=== PATIENT | male | born 1960 | race Caucasian/White ===

== ENCOUNTER 2016-12-20 07:32 | Day surgery (SDC) | payer OTHER ==
--- NOTE | ~2016-12-20 | EGD ---
EGD REPORT [facility] [address] [place] [address] NAME: MICAELA GRAY : 56 STATUS : REG [facility]#: [id number] AGE: 56 ADM/REG DATE : 12/20/16 MR#: [id number] REPORT SERV DATE: 12/20/16 DICTATED BY: DATE: REPORT STATUS : Draft TRANSCRIBED BY: [employer] DATE: 12/20/16 [facility] Patient Name: Micaela Gray Date of : 1960 Attending MD: JOSEY MANDUJANO MD Procedure Date No Time: 12/20/2016 Procedure: Upper GI endoscopy Indications: Abdominal pain in the left upper quadrant, Esophageal reflux symptoms that recur despite appropriate therapy Referring MD: MABEL HOLGUIN Medicines: Monitored Anesthesia Care Complications: No immediate complications. Procedure: Pre-Anesthesia Assessment: - ASA Grade Assessment: III - A patient with severe systemic disease. After obtaining informed consent, the endoscope was passed under direct vision. Throughout the procedure, the patient's blood pressure, pulse, and oxygen saturations were monitored continuously. The GIF H190 [id number] was introduced through the mouth, and advanced to the third part of duodenum. The upper GI endoscopy was accomplished without difficulty. The patient tolerated the procedure well. Findings: A 3 cm hiatus hernia was present. The Z-line was irregular and was found 38 cm from the incisors. A small nodule was noted at 3 o'clock position. Biopsies were taken with a cold forceps for histology. No other significant abnormalities were identified in a careful examination of the esophagus. There is no endoscopic evidence of areas of erosion, ulcerations or varices in the entire esophagus. The entire examined stomach was normal. There is no endoscopic evidence of erythema, mucosal abnormalities, ulceration or varices in the entire examined stomach. The examined duodenum was normal. Biopsies were taken with a cold forceps for histology. There is no endoscopic evidence of mucosal abnormalities or ulceration in the entire examined duodenum. The cardia and gastric fundus were otherwise normal on retroflexion. Impression: - Hiatus hernia. - Z-line irregular, 38 cm from the incisors. Biopsied. - Normal stomach. EGD REPORT [address] [address] NAME: MICAELA GRAY : [birth year] STATUS : REG [facility] [place] PAT#: [id number] AGE: 56 ADM/REG DATE : 12/20/16 MR#: [id number] REPORT SERV DATE: 12/20/16 DICTATED BY: DATE: REPORT STATUS : Draft TRANSCRIBED BY: [employer] DATE: 12/20/16 - Normal examined duodenum. Biopsied. Recommendation: - Patient has a contact number available for emergencies. The signs and symptoms of potential delayed complications were discussed with the patient. Return to normal activities tomorrow. Written discharge instructions were provided to the patient. - Return to previous diet. - Discharge patient to home. - Continue present medications. - Await pathology results. Procedure Code(s): --- Professional --- 25706, Esophagogastroduodenoscopy, flexible, transoral; with biopsy, single or multiple Diagnosis Code(s): --- Professional --- K44.9, Diaphragmatic hernia without obstruction or gangrene K22.8, Other specified diseases of esophagus R10.12, Left upper quadrant pain K21.9, Gastro-esophageal reflux disease without esophagitis CPT copyright 2013 [employer]. All rights reserved. The codes documented in this report are preliminary and upon clinical coder review may be revised to meet current compliance requirements. JOSEY MANDUJANO MD 12/20/2016 9:10 AM This report has been signed electronically. Number of Addenda: 0 Note Initiated On: 12/20/2016 8:57 AM Scope Withdrawal Time 0 hours 0 minutes 0 seconds [id number] [place] [id number]
--- NOTE | ~2016-12-20 | EGD ---
EGD REPORT [facility] [address] [address] NAME: MICAELA GRAY : [birth year] STATUS : REG [facility]#: [id number] AGE: 56 ADM/REG DATE : 12/20/16 MR#: [id number] REPORT SERV DATE: 12/20/16 DICTATED BY: DATE: REPORT STATUS : Draft TRANSCRIBED BY: [employer] DATE: 12/20/16 End[facility] Center Patient Name: Micaela Gray Date of : 1960 Attending MD: JOSEY MANDUJANO MD Procedure Date No Time: 12/20/2016 Procedure: Colonoscopy Indications: Abdominal pain in the left upper quadrant, Change in bowel habits Referring MD: MABEL HOLGUIN Medicines: Monitored Anesthesia Care Complications: No immediate complications. Procedure: Pre-Anesthesia Assessment: - ASA Grade Assessment: III - A patient with severe systemic disease. After I obtained informed consent, the scope was passed under direct vision. Throughout the procedure, the patient's blood pressure, pulse, and oxygen saturations were monitored continuously. The PCF [id number] was introduced through the anus and advanced to the terminal ileum. The colonoscopy was performed without difficulty. The patient tolerated the procedure well. The quality of the bowel preparation was excellent. Findings: The perianal and digital rectal examinations were normal. A flat polyp was found in the ascending colon. The polyp was diminutive in size. The polyp was removed with a cold biopsy forceps. Resection and retrieval were complete. A flat polyp was found at 40 cm proximal to the anus. The polyp was small in size. The polyp was removed with a cold snare. Resection and retrieval were complete. No other significant abnormalities were identified in a careful examination of the remainder of the colon. There is no endoscopic evidence of diverticula, inflammation, mass, stenosis, ulcerations or angioectasia in the entire colon. The terminal ileum appeared normal. No additional abnormalities were found on retroflexion. Impression: - One diminutive polyp in the ascending colon. Resected and retrieved. - One small polyp at 40 cm proximal to the anus. Resected and retrieved. - The examined portion of the ileum was normal. EGD REPORT [address] [address] NAME: MICAELA GRAY : [birth year] STATUS : REG [facility]#: [id number] AGE: 56 ADM/REG DATE : 12/20/16 MR#: [id number] REPORT SERV DATE: 12/20/16 DICTATED BY: DATE: REPORT STATUS : Draft TRANSCRIBED BY: [employer] DATE: 12/20/16 Recommendation: - Patient has a contact number available for emergencies. The signs and symptoms of potential delayed complications were discussed with the patient. Return to normal activities tomorrow. Written discharge instructions were provided to the patient. - High fiber diet. - Discharge patient to home. - Continue present medications. - Await pathology results. - Repeat colonoscopy in 5 years for surveillance based on pathology results. - Miralax daily. If bowels moving well, pain persists, consider musculoskeletal causes, etc. Procedure Code(s): --- Professional --- 49020, Colonoscopy, flexible, proximal to splenic flexure; with removal of tumor(s), polyp(s), or other lesion(s) by snare technique 63401, 59, Colonoscopy, flexible, proximal to splenic flexure; with biopsy, single or multiple Diagnosis Code(s): --- Professional --- D12.6, Benign neoplasm of colon, unspecified D12.2, Benign neoplasm of ascending colon R10.12, Left upper quadrant pain R19.4, Change in bowel habit CPT copyright 2013 [employer]. All rights reserved. The codes documented in this report are preliminary and upon chemical test engineer review may be revised to meet current compliance requirements. JOSEY MANDUJANO MD 12/20/2016 9:28 AM This report has been signed electronically. Number of Addenda: 0 Note Initiated On: 12/20/2016 8:56 AM Scope Withdrawal Time 0 hours 8 minutes 37 seconds [id number] [place] [id number]
[~2016-12-20 07:32] MED LIST: ACET500CAP PO; ALEVE220 MG PO; AMB5 PO; BEVESPI INH; FLOMAX4 PO; PLAQ200B PO; PROAIR HFA INH; PROTONIX PO; SPIRIVA RESPIMAT INH; VITC500 PO; ZESTRIL20 MG PO; ZYRTEC ALLGY10 MG PO
[2017-02-08] MEDS ORDERED: VENTOLIN HFA INH (16:13)
[2017-02-08] MEDS ORDERED: [UNRECOGNIZED DRUG - OTHER] PO (16:15)
[2017-02-23] MEDS ORDERED: NORCO1 TA2 (10:07)
[2017-02-23] MEDS ORDERED: PCET PO (10:08)
== END 2016-12-20 23:59 | disposition home or self-care (01) ==
LOC: DMU 07:32
PROVIDERS: Internal Medicine Gastroenterology
PROC: 0DB98ZX Excision of Duodenum, Via Natural or Artificial Opening Endoscopic, Diagnostic (ICD-10-PCS; 2016-12-20)
PROC: 0DBK8ZZ Excision of Ascending Colon, Via Natural or Artificial Opening Endoscopic (ICD-10-PCS; principal; 2016-12-20 09:30)
PROC: 0DBP8ZZ Excision of Rectum, Via Natural or Artificial Opening Endoscopic (ICD-10-PCS; 2016-12-20 09:30)
PROC: 0DB48ZX Excision of Esophagogastric Junction, Via Natural or Artificial Opening Endoscopic, Diagnostic (ICD-10-PCS; 2016-12-20 09:30)
DX: C16.0 Malignant neoplasm of cardia (principal); D12.2 Benign neoplasm of ascending colon; K44.9 Diaphragmatic hernia without obstruction or gangrene; K21.9 Gastro-esophageal reflux disease without esophagitis; I10 Essential (primary) hypertension; J44.9 Chronic obstructive pulmonary disease, unspecified; J45.909 Unspecified asthma, uncomplicated; Z88.0 Allergy status to penicillin; Z79.899 Other long term (current) drug therapy
CPT/HCPCS: 82962; 88305

== ENCOUNTER 2016-12-25 07:25 | Day surgery (SDC) | payer OTHER ==
--- NOTE | ~2016-12-25 | EGD ---
EGD REPORT [facility] [address] [address] NAME: MICAELA GRAY : 56 [place] [facility] [place] [id number] AGE: 56 ADM/REG DATE : 12/25/16 MR#: [id number] REPORT SERV DATE: 12/25/16 DICTATED BY: PASQUALE ZAMORA DATE: 12/25/16 REPORT STATUS : Draft [facility]ANSCRIBED BY: [facility] DATE: 12/25/16 Endoscopy Center Patient Name: Micaela Gray Date of : 1960 Attending MD: PASQUALE ZAMORA, Procedure Date No Time: 12/25/2016 Procedure: Upper EUS Indications: Staging of esophageal adenocarcinoma Referring MD: MABEL Saldana Medicines: Monitored Anesthesia Care Complications: No immediate complications. Estimated blood loss: None. Procedure: After obtaining informed consent, the endoscope was passed under direct vision. Throughout the procedure, the patient's blood pressure, pulse, and oxygen saturations were monitored continuously. The Endoscope was introduced through the mouth, and advanced to the second part of duodenum. The GIF IT Q160 [id number] was introduced through the mouth, and advanced to the second part of duodenum. Findings: Endoscopic Finding : A single small nodule (This measured about 8-10 mm) with a localized distribution was found at the gastroesophageal junction. Preparations were made for mucosal resection after completion of the EUS. Band ligator and snare mucosal resection was successfully performed. The Z-line was irregular and was found 38 cm from the incisors. A 3 cm hiatus hernia was present. The exam of the stomach was otherwise normal. The cardia and gastric fundus were normal on retroflexion. The examined duodenum was endoscopically normal. Endosonographic Finding : There was no sign of significant endosonographic abnormality in the esophagus. Endosonographic images of the stomach were unremarkable. There was no sign of significant endosonographic abnormality in the common bile duct. An unremarkable gallbladder was identified. There was no sign of significant endosonographic abnormality in the entire pancreas. There was no sign of significant endosonographic abnormality in the examined duodenum. No lymphadenopathy seen. Impression: - Nodule found in the esophagus. - Z-line irregular, 38 cm from the incisors. EGD REPORT [address] [address] NAME: MICAELA GRAY : [birth year] [place] [facility] [place]#: [id number] AGE: 56 ADM/REG DATE : 12/25/16 MR#: [id number] REPORT SERV DATE: 12/25/16 DICTATED BY: PASQUALE ZAMORA DATE: 12/25/16 REPORT STATUS : Draft TRANSCRIBED BY: [employer] DATE: 12/25/16 - Hiatus hernia. - Normal examined duodenum. - There was no sign of significant pathology in the esophagus. - Endosonographic images of the stomach were unremarkable. - There was no sign of significant pathology in the common bile duct. - There was no sign of significant pathology in the entire pancreas. - There was no sign of significant pathology in the examined duodenum. - Mucosal resection was successfully performed. Recommendation: - Return to previous diet. - Continue present medications. - Await path results. - Repeat the upper endoscopic ultrasound for surveillance based on pathology results. Procedure Code(s): --- Professional --- 62557, Esophagogastroduodenoscopy, flexible, transoral; with endoscopic mucosal resection 67788, Esophagogastroduodenoscopy, flexible, transoral; with endoscopic ultrasound examination, including the esophagus, stomach, and either the duodenum or a surgically altered stomach where the jejunum is examined distal to the anastomosis Diagnosis Code(s): --- Professional --- K22.8, Other specified diseases of esophagus K44.9, Diaphragmatic hernia without obstruction or gangrene C15.9, Malignant neoplasm of esophagus, unspecified CPT copyright 2013 [employer]. All rights reserved. The codes documented in this report are preliminary and upon patient access review may be revised to meet current compliance requirements. PASQUALE ZAMORA, 12/25/2016 10:36 AM Number of Addenda: 0 Note Initiated On: 12/25/2016 9:57 AM EGD REPORT [facility] [address] [address] NAME: MICAELA GRAY : 56 STATUS : [place] [facility] [place]#: [id number] AGE: 56 ADM/REG DATE : 12/25/16 MR#: [id number] REPORT SERV DATE: 12/25/16 DICTATED BY: PASQUALE ZAMORA DATE: 12/25/16 REPORT STATUS : Draft TRANSCRIBED BY: [employer] DATE: 12/25/16 [address] [id number]
[2017-02-08] MEDS ORDERED: VENTOLIN HFA INH (16:13)
[2017-02-08] MEDS ORDERED: [UNRECOGNIZED DRUG - OTHER] PO (16:15)
[2017-02-23] MEDS ORDERED: NORCO1 TA2 (10:07)
[2017-02-23] MEDS ORDERED: PCET PO (10:08)
== END 2016-12-25 23:59 | disposition home or self-care (01) ==
LOC: DMU 07:25
PROVIDERS: Internal Medicine Gastroenterology
PROC: BD47ZZZ Ultrasonography of Gastrointestinal Tract (ICD-10-PCS; 2016-12-25)
PROC: 0DB48ZZ Excision of Esophagogastric Junction, Via Natural or Artificial Opening Endoscopic (ICD-10-PCS; principal; 2016-12-25 11:00)
PROC: 0DJ08ZZ Inspection of Upper Intestinal Tract, Via Natural or Artificial Opening Endoscopic (ICD-10-PCS; 2016-12-25 11:00)
DX: C16.0 Malignant neoplasm of cardia (principal); K44.9 Diaphragmatic hernia without obstruction or gangrene; K22.8 Other specified diseases of esophagus; I10 Essential (primary) hypertension; E11.9 Type 2 diabetes mellitus without complications; J44.9 Chronic obstructive pulmonary disease, unspecified; J45.909 Unspecified asthma, uncomplicated; Z88.0 Allergy status to penicillin; Z91.018 Allergy to other foods; Z79.899 Other long term (current) drug therapy
CPT/HCPCS: 82962; 88305; 88360